=== PATIENT | female | born 1960 | race Caucasian/White ===

== ENCOUNTER 2019-06-21 14:46 | Outpatient (CLI) | payer SELFPAY ==
--- NOTE | 2019-06-21 14:48 | MR_ITS ---
WS: [id number] MRI CERVICAL SPINE NONCONTRAST TECHNIQUE: Sagittal T1, T2 and STIR imaging. Axial T2, gradient, and fiesta imaging. CLINICAL INFORMATION: CHRONIC NECK PAIN >3 MONTHS;CERV SPINE PAINFUL ON MOVEMENT COMPARISON: None. FINDINGS: Straightening of the normal cervical lordosis. Small disc protrusions at C4-C5 and C5-C6. Cord signal is normal. C2-C3: Mild right and no significant left foraminal narrowing. Mild facet arthropathy. Tiny central p rotrusion. Spinal canal is patent. C3-C4: Mild disc bulging with a tiny shallow central protrusion. Mild left and no significant right f oraminal narrowing. Moderate facet arthropathy. Mild central canal stenosis. C4-C5: Right pericentral disc protrusion with slight indentation right ventral cervical cord. Mild ce ntral canal stenosis. Moderate right greater than left bony foraminal narrowing. Moderate facet arthr opathy. C5-C6: Bilobed central disc protrusion. Moderate central canal stenosis. Moderate to severe left grea ter than right bony foraminal narrowing. Mild facet arthropathy. C6-C7: No significant disc bulging. Moderate left and mild right bony foraminal narrowing. Mild facet arthropathy. C7-T1: No significant disc bulging. Mild left greater than right bony foraminal narrowing. Visualized brain stem structures: Normal. Prevertebral soft tissues: Normal. MR/MR cervical spin wo con* [id number] IMPRESSION: 1. Straightening of the normal cervical lordosis with small disc protrusions C 4-C5 and C5-C6. Cord signal is normal. 2. Right pericentral disc protrusion C4-C5 with indentation on the right vent ral cervical cord. Mild central canal stenosis. Moderate right greater than lef t foraminal narrowing. 3. Bilobed disc protrusion eccentric to the left with indentation on cervical cord. Moderate central canal stenosis. Moderate to severe left greater than rig ht foraminal narrowing. 4. Moderate left C6-C7 bony foraminal narrowing.
== END 2019-06-21 14:47 | disposition home or self-care (01) ==
PROVIDERS: PCP Nurse Practitioner Family; Visit Provider Nurse Practitioner Family
DX: M50.221 Other cervical disc displacement at C4-C5 level (principal); M48.02 Spinal stenosis, cervical region; M54.2 Cervicalgia; G89.29 Other chronic pain
CPT/HCPCS: 72141

== ENCOUNTER 2019-08-29 09:23 | Outpatient (CLI) | payer SELFPAY ==
--- NOTE | 2019-08-29 10:00 | IR_ITS ---
WS: [id number] CERVICAL MYELOGRAM HISTORY: Cervical stenosis COMPARISON: 06/21/2019 MRI. FLUOROSCOPY TIME: 0.9 minutes. Procedure, risks and complications were explained to the patient. Risks including bleeding, infection , headaches, allergic reaction and seizures. Consent has been obtained. With the patient in prone position the skin over the lumbar region is cleansed with ChloraPrep and an esthetized with lidocaine. 22-gauge spinal needle is inserted into the thecal sac at the appropriate level determined by fluoroscopy. Omnipaque 300; 12 ml is injected slowly under fluoroscopy with no co mplications. Needle bevel is perpendicular to the longitudinal fibers of the dura. Stylet is reinsert ed prior to removal of the needle. Patient tolerated the procedure well. Patient will proceed to CT f or further evaluation. Uncomplicated injection into the lumbar region. Normal cervical alignment with only mild straightening which could be positional. With flexion and ex tension there is no significant instability. Good distention of the subarachnoid space with contrast. Disc spaces and vertebral body heights are normal. IR/IR myelogram sp cervical [id number] IMPRESSION: 1. Uncomplicated cervical myelogram. Please see CT report to follow. 2. No cervical instability.
[2019-08-29] MEDS: iohexol 300 mg/mL 50 mL Btl INTRATHECA (11:07)
--- NOTE | 2019-08-29 11:30 | CT_ITS ---
WS: [id number] CT CERVICAL MYELOGRAM HISTORY: Cervical stenosis Technique: All CT scans at [facility] use at least one of these dose optimization techniq ues: automated exposure control; mA and/or kV adjustment per patient size (includes targeted exams wh ere dose is matched to clinical indication); or iterative reconstruction. DLP: 1389.71 mGycm COMPARISON: 06/21/2019 and MRI. Good opacification of thecal sac with contrast. Normal cervical alignment. Disc bulging with slight deformity the ventral thecal sac at C4-5 and C5-C 6. Disc spaces and heights are well-maintained. Craniocervical junction is normal. C1-C2: Normal. C2-C3: Normal. C3-C4: Very shallow central disc protrusion and mild facet arthritis. Mild LEFT foraminal narrowing. C4-C5: Diffuse annular disc bulging with moderate central to RIGHT paracentral focal disc protrusion. Effacement of ventral CSF and mild deformity concavity involving the ventral cord. Mild central sten osis with moderate bilateral foraminal narrowing. C5-C6: Diffuse annular disc bulging with a focal LEFT paracentral disc protrusion. Mass effect and de formity of the LEFT lateral thecal sac and cervical cord. Deformity of the RIGHT lateral thecal sac i s predominantly due to an osteophyte. Small amount of CSF still remains surrounding the cord. Mild ce ntral and bilateral foraminal stenosis. C6-C7: Small osteophytes without stenosis. Emphysematous changes at the lung apices. CT/CT cervical spine w con [id number] IMPRESSION: 1. Moderate central to RIGHT paracentral focal disc protrusion at C4-5 with en croachment and contact on the ventral cord. Mild central stenosis with moderate bilateral foraminal stenosis at C4-5. 2. Moderate LEFT paracentral disc protrusion at C5-6 resulting in mild contact on the ventral cord. Smaller RIGHT paracentral osteophyte without significant deformity or cord encroachment. 3. Mild central and bilateral foraminal stenosis at C5-6. 4. Mild LEFT foraminal stenosis at C3-4.
== END 2019-08-29 09:24 | disposition home or self-care (01) ==
LOC: RADWPI 09:35
PROVIDERS: PCP Nurse Practitioner Family; Visit Provider Licensed Practical Nurse
DX: M48.02 Spinal stenosis, cervical region (principal); M50.221 Other cervical disc displacement at C4-C5 level
CPT/HCPCS: 62302; 72040; 72126

== ENCOUNTER → 2019-08-31 09:54 | Outpatient (BNVA) | payer SELFPAY | PROVIDERS: PCP Nurse Practitioner Family; Referring Provider Licensed Practical Nurse; Visit Provider Psychiatry & Neurology Neurology | DX: M54.2 Cervicalgia (principal); M79.601 Pain in right arm; M79.602 Pain in left arm; F17.210 Nicotine dependence, cigarettes, uncomplicated | CPT/HCPCS: 95886; 95910 ==

== ENCOUNTER → 2019-09-20 10:26 | Outpatient (BNVA) | payer SELFPAY | PROVIDERS: PCP Nurse Practitioner Family; Visit Provider Anesthesiology Pain Medicine | DX: M47.812 Spondylosis without myelopathy or radiculopathy, cervical region (principal); M54.12 Radiculopathy, cervical region; M50.020 Cervical disc disorder with myelopathy, mid-cervical region, unspecified level; F17.210 Nicotine dependence, cigarettes, uncomplicated; Z79.899 Other long term (current) drug therapy | CPT/HCPCS: 99204; 99205 ==

== ENCOUNTER → 2019-10-06 13:37 | Outpatient (BNVA) | payer SELFPAY | PROVIDERS: PCP Nurse Practitioner Family; Visit Provider Anesthesiology Pain Medicine | DX: M50.020 Cervical disc disorder with myelopathy, mid-cervical region, unspecified level (principal); F17.210 Nicotine dependence, cigarettes, uncomplicated | CPT/HCPCS: 62321; J1100; J2001 ==

== ENCOUNTER 2025-03-05 07:55 | Outpatient (CLI) | payer MEDICARE, MEDICAID, SELFPAY ==
--- NOTE | 2025-03-05 08:08 | NM_ITS ---
WS: [id number] NUCLEAR MEDICINE HIDA SCAN CLINICAL INFORMATION: RUQ PAIN TECHNIQUE: Following intravenous administration of 8.2 mCi of technetium 99m mebrofenin, images of the abdomen were obtained over the course of 60 minutes. Next, gallbladder ejection fraction was determined by obtaining preprandial and one-hour postprandial images of the gallbladder following oral ingestion of Ensure. COMPARISON: None. FINDINGS: Normal hepatic uptake at 5 minutes. Normal hepatic excretion. Gallbladder is visualized by 15 minutes. No evidence of acute cholecystitis. Normal common bile duct and small bowel activity. Normal gallbladder ejection fraction 91% within normal limits. No evidence of chronic cholecystitis. NM/NM hepatobiliary w phar* [id number] IMPRESSION: 1. No evidence of acute or chronic cholecystitis. 2. Normal gallbladder ejection fraction 91%.
== END 2025-03-05 07:56 | disposition home or self-care (01) ==
LOC: RAD 08:02
PROVIDERS: PCP Internal Medicine; Visit Provider Internal Medicine
DX: R10.11 Right upper quadrant pain (principal)
CPT/HCPCS: 78227; A9537

== ENCOUNTER 2025-04-26 11:42 | Outpatient (CLI) | payer MEDICARE, MEDICAID, SELFPAY ==
--- NOTE | 2025-04-26 12:00 | MM_ITS ---
WS: [id number] SCREENING DIGITAL TOMOSYNTHESIS MAMMOGRAM WITH CAD HISTORY: SCREENING COMPARISON: None available. Bilateral CC and MLO with tomosynthesis views submitted. Synthetic mammography reviewed. Computer aided detection analyzed. Breast composition: There are scattered areas of fibroglandular density. No suspicious masses, microcalcifications or architectural distortion. MM/MM scr BI tomosynthesis [id number] IMPRESSION: BI-RADS: 1 - Negative. FOLLOW UP: 1 Year Follow-up
== END 2025-04-26 11:43 | disposition home or self-care (01) ==
LOC: MOBLMAM 11:50
PROVIDERS: PCP Family Medicine; Visit Provider Family Medicine
DX: Z12.31 Encounter for screening mammogram for malignant neoplasm of breast (principal); R92.323 Mammographic fibroglandular density, bilateral breasts
CPT/HCPCS: 77063; 77067